=== PATIENT | female | born 1985 | race Caucasian/White ===

== ENCOUNTER 2017-05-10 06:03 | Observation (INO) | payer BC, OTHER ==
[~2017-05-10] VITALS: Ht 172.7 cm; Wt 89.9 kg
[~2017-05-10 06:03] MED LIST: CALC600T9 PO; CLIN300C2 PO; OMEG12006 PO; VITAMIN B12 PO; VITAMIN C PO
[2017-05-10] MEDS ORDERED: SODIUM CHLORIDE 0.9% 1000ML 1,000 ML IV STA (06:22)
[2017-05-10] MEDS ORDERED: KETOROLAC TROMETHAMINE 30 MG/ML VIAL IV STA (06:22)
[2017-05-10] MEDS ORDERED: AMPICILLIN/SULBACTAM SOD INJ 3,000 MG in SODIUM CHLORIDE 0.9% 100ML 100 ML IV ONE (06:30)
[2017-05-10] MEDS ORDERED: OPTIRAY 320 IV PRN (06:30)
[2017-05-10] MEDS ORDERED: DEXAMETHASONE **PF** INJ 10 MG/ML VIAL IV ONE (06:30)
--- NOTE | 2017-05-10 06:33 | EMERGENCY ROOM VISIT NOTE ---
History Report prepared by Gil: Kehinde Nice Under the Supervision of: Dr. Naman Butler M.D. First contact with patient: 06:14 Chief Complaint: DENTAL PAIN Stated Complaint: ABCESSED TOOTH,FACIAL SWELLING History of Present Illness The patient is a 32 year old female who presents to the Emergency Room with complaints of worsening right sided dental pain starting four days ago. She currently rates her discomfort as a 3/10 in severity. The patient states that she was seen at an ER two days ago, and she was diagnosed with a dental abscess , and she was put on clindamycin. She states that the pain has gotten worse, and it is more swollen. The patient denies any fevers, chills, nausea, and vomiting. She states that she does not have any active medical problems. She states that she can swallow, however she feels a fullness. Source of History: patient Onset: four days ago Position: other (right sided dental ) Symptom Intensity: 3/10 Timing: worsening Associated Symptoms: No fevers, No chills, No nausea, No vomiting Note: Associated symptoms: swelling Review of Systems See HPI for pertinent positives and negatives. A total of ten systems were reviewed and were otherwise negative. Past Medical & Surgical Medical Problems: (1) Dental abscess (2) Facial cellulitis Social History Smoking Status: Never Smoker Marital Status: single Occupation Status: student Current/Historical Medications Scheduled Clindamycin Hcl (Cleocin), 300 MG PO Q6 Scheduled PRN Hydrocodone/Acetaminophen 5MG/325MG ([place] 5MG/325MG), 1 TABLET PO Q6 PRN for Pain Allergies Coded Allergies: Sulfa Drugs (Verified Allergy, Unknown, RASH, 05/10/17) Physical Exam Vital Signs Date Time Temp Pulse Resp B/P (MAP) Pulse Ox O2 Delivery O2 Flow Rate FiO2 05/10/17 09:01 132/90 99 Room Air 05/10/17 09:00 84 24 108/81 98 Room Air 05/10/17 08:30 85 19 129/71 98 Room Air 05/10/17 08:00 80 15 108/76 99 Room Air 05/10/17 07:33 62 16 122/62 97 Room Air 05/10/17 06:50 79 05/10/17 06:07 37.0 74 18 128/77 98 Room Air Physical Exam GENERAL: Awake, alert, uncomfortable, in no distress HENT: Moderate right mandibular and sub-mandibular swelling. Mild tenderness. No crepitus. No tongue elevation or trismus. No injection or edema in the posterior oropharynx. Normocephalic, atraumatic. EYES: Normal conjunctiva. Sclera non-icteric. NECK: No pain with tracheal manipulation. No stridor to auscultation. Supple. No nuchal rigidity. FROM. No JVD. RESPIRATORY: Clear to auscultation. CARDIAC: Regular rate, normal rhythm. Extremities warm and well perfused. Pulses equal. ABDOMEN: Soft, non-distended. No tenderness to palpation. No rebound or guarding. No masses. RECTAL: Deferred. MUSCULOSKELETAL: Chest examination reveals no tenderness. The back is symmetrical on inspection without obvious abnormality. There is no CVA tenderness to palpation. No joint edema. LOWER EXTREMITIES: Calves are equal size bilaterally and non-tender. No edema. No discoloration. NEURO: Normal sensorium. No sensory or motor deficits noted. SKIN: No rash or jaundice noted. Medical Decision & Procedures Laboratory Results 05/10/17 06:34 Red Blood Count 4.38, Mean Corpuscular Volume 91.6, Mean Corpuscular Hemoglobin 31.7, Mean Corpuscular Hemoglobin Concent 34.7, Mean Platelet Volume 9.4, Neutrophils (%) (Auto) 64.8, Lymphocytes (%) (Auto) 23.0, Monocytes (%) (Auto) 9.7, Eosinophils (%) (Auto) 2.2, Basophils (%) (Auto) 0.1, Neutrophils # (Auto) 5.55, Lymphocytes # (Auto) 1.97, Monocytes # (Auto) 0.83, Eosinophils # (Auto) 0.19, Basophils # (Auto) 0.01 05/10/17 06:34 Test 05/10/17 06:34 05/10/17 06:42 White Blood Count 8.57 K/uL (4.8-10.8) Red Blood Count 4.38 M/uL (4.2-5.4) Hemoglobin 13.9 g/dL (12.0-16.0) Hematocrit 40.1 % (37-47) Mean Corpuscular Volume 91.6 fL (80-100) Mean Corpuscular Hemoglobin 31.7 pg (25-34) Mean Corpuscular Hemoglobin Concent 34.7 g/dl (32-36) Platelet Count 275 K/uL (130-400) Mean Platelet Volume 9.4 fL (7.4-10.4) Neutrophils (%) (Auto) 64.8 % Lymphocytes (%) (Auto) 23.0 % Monocytes (%) (Auto) 9.7 % Eosinophils (%) (Auto) 2.2 % Basophils (%) (Auto) 0.1 % Neutrophils # (Auto) 5.55 K/uL (1.4-6.5) Lymphocytes # (Auto) 1.97 K/uL (1.2-3.4) Monocytes # (Auto) 0.83 K/uL (0.11-0.59) Eosinophils # (Auto) 0.19 K/uL (0-0.5) Basophils # (Auto) 0.01 K/uL (0-0.2) RDW Standard Deviation 41.9 fL (36.4-46.3) RDW Coefficient of Variation 12.5 % (11.5-14.5) Immature Granulocyte % (Auto) 0.2 % Immature Granulocyte # (Auto) 0.02 K/uL (0.00-0.02) Est Creatinine Clear Calc Drug Dose 119.9 ml/min Estimated GFR () 114.8 Estimated GFR (Non- 99.1 BUN/Creatinine Ratio 14.0 (10-20) Calcium Level 8.6 mg/dl (8.5-10.1) Bedside Hemoglobin 13.9 g/dl (12.0-16.0) Bedside Hematocrit 41 % (37-47) Bedside Sodium 138 mEq/L (135-144) Bedside Potassium 3.9 mEq/L (3.3-5.0) Bedside Chloride 102 mEq/L (101-112) Bedside Total CO2 23 mEq/l (24-31) Anion Gap 17.0 mmol/L (16-25) Bedside Blood Urea Nitrogen 11 mg/dl (7-18) Bedside Creatinine 0.9 mg/dl (0.6-1.3) Bedside Glucose (other) 105 mg/dl (70-99) Bedside Ionized Calcium (Janell) 1.18 mmol/l (1.12-1.32) Laboratory results reviewed by me Medications Administered Medications (Trade) Dose Ordered Sig/Yash Route Start Time Stop Time Status Last Admin Dose Admin Sodium Chloride 1,000 ml @ 999 mls/hr Q1H1M STAT IV 05/10/17 06:22 05/10/17 07:22 DC 05/10/17 06:47 999 MLS/HR Ketorolac Tromethamine (Toradol Inj) 30 mg NOW STAT IV 05/10/17 06:22 05/10/17 06:25 DC 05/10/17 06:49 30 MG Ampicillin Sodium/ Sulbactam Sodium 3000 mg/Sodium Chloride 108 ml @ 200 mls/hr ONE ONCE IV 05/10/17 06:30 05/10/17 07:02 DC 05/10/17 06:49 200 MLS/HR Dexamethasone Sodium Phosphate (Dexamethasone Inj Pf) 10 mg NOW ONCE IV 05/10/17 06:30 05/10/17 06:31 DC 05/10/17 06:47 10 MG Acetaminophen (Tylenol Tab) 650 mg Q4H PRN PO 05/10/17 09:00 06/09/17 08:59 05/10/17 23:30 650 MG ED Course 0614: The patient was evaluated in room B9. A complete history and physical exam was performed. Medical Decision I reviewed the patient's past medical history, medications, and the nursing notes as described above. Differential diagnoses include: Dental abscess, Paul's angina, RE DYE HAND, RTA The patient is a 32-year-old woman presents emergency Department with worsening right jaw swelling and pain after being diagnosed a couple of days ago with a likely periodontal abscess per history of present illness. Arrival the patient is uncomfortable but in no acute distress, afebrile with stable vital signs. He is moderate right mandibular and submandibular swelling with mild tenderness but no crepitus. No trismus or tongue elevation. No posterior pharyngeal edema or injection. No pain with tracheal manipulation. No stridor on auscultation. CT demonstrates extensive overlying cellulitis within the right facial soft tissues extending to SCM concerning for Paul's angina. Patient given Unasyn and dex with some improvement. Will need admission for IV abx and likely oral surgery consultation. Case d/w Dr. Jackson, [facility] hospitalist, who will admit the patient for further management. Impression Primary Impression: Periapical abscess Additional Impression: Ludwigs angina Scribe Attestation The scribe's documentation has been prepared under my direction and personally reviewed by me in its entirety. I confirm that the note above accurately reflects all work, treatment, procedures, and medical decision making performed by me. Departure Information Referrals No Doctor, Assigned (PCP) Patient Instructions Dental Abscess, My [facility] Additional Instructions Please follow up with your primary care physician and dentist in the next 1-3 days for re-evaluation. You likely have .... Otherwise, your exam, CT scan, and lab results did not show signs of an emergent condition at this time. Augmentin as directed. Ibuprofen for pain as needed. Return to the emergency department for worsening symptoms as described in the accompanying instructions. Problem Qualifiers
[2017-05-10] MEDS ORDERED: HYDR-5688 PO (06:44)
[2017-05-10 06:55] LABS: ISTAT CREATININE 0.9 mg/dl (0.6-1.3); ISTAT HEMOGLOBIN 13.9 g/dl (12.0-16.0); ISTAT IONIZED CALCIUM 1.18 mmol/l (1.12-1.32)
[2017-05-10 06:56] LABS: BASO % 0.1 %; BASO ABS # 0.01 K/uL (0-0.2); COMPLETE YES; EOS % 2.2 %; HEMATOCRIT 40.1 % (37-47); IG% 0.2 %; LYMPH ABS # 1.97 K/uL (1.2-3.4); MEAN CELL VOLUME 91.6 fL (80-100); MEAN CORPUSCULAR HEMOGLOBIN 31.7 pg (25-34); MEAN CORPUSCULAR HGB CONC 34.7 g/dl (32-36); MEAN PLATELET VOLUME 9.4 fL (7.4-10.4); MONO % 9.7 %; NEUT % 64.8 %; PLATELET COUNT 275 K/uL (130-400); RED BLOOD COUNT 4.38 M/uL (4.2-5.4); WHITE BLOOD COUNT 8.57 K/uL (4.8-10.8)
[2017-05-10 07:06] LABS: CALCIUM 8.6 mg/dl (8.5-10.1); CREATININE 0.79 mg/dl (0.60-1.20); POTASSIUM 3.9 mmol/L (3.5-5.1)
--- NOTE | 2017-05-10 07:46 | DIAGNOSTIC IMAGING REPORT ---
CT SCAN OF THE NECK WITH IV CONTRAST CLINICAL HISTORY: Periodontal disease. Facial pain and swelling. COMPARISON STUDY: Cervical spine radiographs dated 10/17/2008. TECHNIQUE: Following the IV administration of 115 cc of Optiray 320, CT scan of the soft tissues of the neck was performed from the skull base to the upper chest. Images are reviewed in the axial, sagittal, and coronal planes. IV contrast was administered without complication. A dose lowering technique was utilized adhering to the principles of ALARA. CT DOSE: 506.67 mGy.cm FINDINGS: Soft tissues and dentition: There is a large periapical lucency identified around a right mandibular molar with associated cortical breakthrough. There is significant inflammatory stranding and phlegmonous change in the overlying right premandibular soft tissues consistent with synovitis. No organized fluid collection is clearly seen to indicate abscess. Inflammatory change extends into the right lower neck along the sternocleidomastoid muscle towards the thoracic inlet with trace subcutaneous fluid. Inflammatory change is present within the deep submental soft tissues, and involving the anterior and right parapharyngeal soft tissues. Pharynx: The nasopharynx is normal in appearance. As noted above, there is extensive submental inflammatory change. There is inflammatory stranding within the anterior pharyngeal soft tissues as well as mild infiltration of the right parapharyngeal fat. The pharyngeal airway is widely patent. There is no evidence of mass lesion. The vocal cords are symmetric. The prevertebral/retropharyngeal soft tissues are within normal limits. A calcified tonsilliths is noted on the left. Lymphadenopathy: Prominent right cervical chain lymph nodes are likely on a reactive basis. Thyroid: Normal in size and attenuation. Salivary glands: There is mild hyperemia of the right submandibular gland. The parotid and left submandibular glands are within normal limits. Brain parenchyma: The visualized brain parenchyma at the skull base is normal in appearance. Vascular structures: Internal jugular veins and carotid arteries are widely patent bilaterally. Skeletal structures: Imaged portions of the calvarium at the skull base are within normal limits. The cervical spine appears intact. Sinuses and mastoids: Trace mucosal thickening is seen in the maxillary antra. The remaining visualized paranasal sinuses are clear. The mastoid air cells are well pneumatized. Orbits: The bony orbits are intact. Orbital contents are normal in appearance. Lung apices: Visualized apical lung parenchyma is clear. IMPRESSION: 1. There is a large periapical lucency identified around a right mandibular molar with associated cortical breakthrough. 2. No organized fluid collection is clearly seen to indicate abscess. 3. There is extensive overlying cellulitis within the right facial soft tissues which extends into the right lower neck along the sternocleidomastoid muscle, involves the submental soft tissues, with inflammation involving the anterior pharynx and the right parapharyngeal fat. The appearance is concerning for Lugwig's angina. Clinical correlation will be required. 4. Mildly enlarged cervical lymph nodes are likely on a reactive basis. 5. Mild hyperemia of the right-sided mandibular gland is also likely reactive. Electronically signed by: Robert Borja M.D. 05/10/2017 7:44 AM Dictated Date/Time: 05/10/2017 7:34 AM
[2017-05-10] MEDS ORDERED: ALUMINUM/MAGNESIUM/SIMETH (MAALOX MAX) 30 ML UDC PO PRN (09:00)
[2017-05-10] MEDS ORDERED: MAGNESIUM HYDROXIDE SUSP 30 ML UDC PO PRN (09:00)
[2017-05-10] MEDS ORDERED: POLYETHYLENE (MIRALAX) 17 GM PACK PO PRN (09:00)
[2017-05-10] MEDS ORDERED: ONDANSETRON INJ 2 MG/ML 2 ML VIAL IV PRN (09:00)
[2017-05-10] MEDS ORDERED: KETOROLAC TROMETHAMINE 30 MG/ML VIAL IV PRN (09:00)
[2017-05-10] MEDS ORDERED: MoRPHine SULFATE 4 MG/ML 1 ML CARP\\VIAL IV PRN (09:00)
[2017-05-10 09:07] VITALS: BP 122/62; PULSE 62; TEMP 37; Ht 172.7 cm; Wt 89.9 kg
--- NOTE | 2017-05-10 09:21 | History and Physical ---
History & Physical Date & Time of Service: May 10, 2017 at 09:01 Chief Complaint: Abcessed Tooth,Facial Swelling Primary Care Physician: No Doctor, Assigned History of Present Illness Source: patient, hospital records This is a 32 y/o female with a history of previous dental abscess who presented to the ED on 05/10 with dental pain and facial swelling. The patient states that she first developed right sided dental pain about 4 days ago. The pain initially seemed to get better, but then she developed facial swelling about 2 days ago. She presented to an ER in [place] 2 nights ago and was diagnosed with a dental abscess. No imaging was done at that time. She was prescribed prn [place] and clindamycin and discharged. The patient's swelling got worse despite taking 4-5 clindamycin doses, prompting her to present to this ED. She now complains of swelling in her right cheek going into the neck as well as numbness in the right cheek. She denies difficulty swallowing or breathing. She rates her discomfort a 3/10 aching pain. The patient denies fevers, chills , sweats, chest pain, palpitations, claudication, cough, wheezing, shortness of breath, nausea, vomiting, abdominal pain, dysuria, hematuria, urinary retention , paralysis, weakness. 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 Right cheek/neck swelling and numbness. No hearing loss, No nasal symptoms, No trouble swallowing Respiratory: No cough, No wheezing, No shortness of breath Cardiovascular: No chest pain, No claudication, No palpitations Abdomen: No pain, No nausea, No vomiting Musculoskeletal: No joint pain, No muscle pain, No swelling Genitourinary - Female: No dysuria, No urinary retention, No hematuria Neurologic: No paralysis, No weakness, No numbness/tingling Integumentary: No rash, No itch, No color change Physical Exam Vital Signs Date Time Temp Pulse Resp B/P (MAP) Pulse Ox O2 Delivery O2 Flow Rate FiO2 05/10/17 07:33 62 16 122/62 97 Room Air 05/10/17 06:50 79 05/10/17 06:07 37.0 74 18 128/77 98 Room Air General appearance: +Obese. Well-developed, well-nourished, no apparent distress Head: Normocephalic, atraumatic Eyes: Normal inspection, PERRL, EOMI ENT: +Right lower molar appears decayed. Right mandibular edema, TTP. Submandibular lymph nodes enlarged, TTP. Hearing grossly normal, pharynx normal Neck: Supple, no JVD, trachea midline Respiratory/Chest: Lungs clear to auscultation, normal breath sounds, no respiratory distress Cardiovascular: Regular rate & rhythm, no gallop, no murmur Abdomen/GI: Normal bowel sounds, non-tender, soft Extremities/Musculoskeletal: Normal inspection, no calf tenderness, no pedal edema Neurological/Psych: +Decreased sensation right face compared to left. Alert, normal mood/affect, oriented x 3 Skin: Normal color, warm/dry, no rash Diagnostics Laboratory Results Results Past 24 Hours Test 05/10/17 06:34 05/10/17 06:42 Range/Units White Blood Count 8.57 4.8-10.8 K/uL Red Blood Count 4.38 4.2-5.4 M/uL Hemoglobin 13.9 12.0-16.0 g/dL Hematocrit 40.1 37-47 % Mean Corpuscular Volume 91.6 80-100 fL Mean Corpuscular Hemoglobin 31.7 25-34 pg Mean Corpuscular Hemoglobin Concent 34.7 32-36 g/dl Platelet Count 275 130-400 K/uL Mean Platelet Volume 9.4 7.4-10.4 fL Neutrophils (%) (Auto) 64.8 % Lymphocytes (%) (Auto) 23.0 % Monocytes (%) (Auto) 9.7 % Eosinophils (%) (Auto) 2.2 % Basophils (%) (Auto) 0.1 % Neutrophils # (Auto) 5.55 1.4-6.5 K/uL Lymphocytes # (Auto) 1.97 1.2-3.4 K/uL Monocytes # (Auto) 0.83 0.11-0.59 K/uL Eosinophils # (Auto) 0.19 0-0.5 K/uL Basophils # (Auto) 0.01 0-0.2 K/uL RDW Standard Deviation 41.9 36.4-46.3 fL RDW Coefficient of Variation 12.5 11.5-14.5 % Immature Granulocyte % (Auto) 0.2 % Immature Granulocyte # (Auto) 0.02 0.00-0.02 K/uL Sodium Level 135 136-145 mmol/L Potassium Level 3.9 3.5-5.1 mmol/L Chloride Level 104 98-107 mmol/L Carbon Dioxide Level 27 21-32 mmol/L Anion Gap 4.0 17.0 16-25 mmol/L Blood Urea Nitrogen 11 7-18 mg/dl Creatinine 0.79 0.60-1.20 mg/dl Est Creatinine Clear Calc Drug Dose 119.9 ml/min Estimated GFR () 114.8 Estimated GFR (Non- 99.1 BUN/Creatinine Ratio 14.0 10-20 Random Glucose 105 70-99 mg/dl Calcium Level 8.6 8.5-10.1 mg/dl Bedside Hemoglobin 13.9 12.0-16.0 g/dl Bedside Hematocrit 41 37-47 % Bedside Sodium 138 135-144 mEq/L Bedside Potassium 3.9 3.3-5.0 mEq/L Bedside Chloride 102 101-112 mEq/L Bedside Total CO2 23 24-31 mEq/l Bedside Blood Urea Nitrogen 11 7-18 mg/dl Bedside Creatinine 0.9 0.6-1.3 mg/dl Bedside Glucose (other) 105 70-99 mg/dl Bedside Ionized Calcium (Janell) 1.18 1.12-1.32 mmol/l Diagnostic Radiology Reviewed the following studies and agree with interpretation as follows: [~ rep ct add3]] CT SCAN OF THE NECK WITH IV CONTRAST CLINICAL HISTORY: Periodontal disease. Facial pain and swelling. COMPARISON STUDY: Cervical spine radiographs dated 10/17/2008. TECHNIQUE: Following the IV administration of 115 cc of Optiray 320, CT scan of the soft tissues of the neck was performed from the skull base to the upper chest. Images are reviewed in the axial, sagittal, and coronal planes. IV contrast was administered without complication. A dose lowering technique was utilized adhering to the principles of ALARA. CT DOSE: 506.67 mGy.cm FINDINGS: Soft tissues and dentition: There is a large periapical lucency identified around a right mandibular molar with associated cortical breakthrough. There is significant inflammatory stranding and phlegmonous change in the overlying right premandibular soft tissues consistent with synovitis. No organized fluid collection is clearly seen to indicate abscess. Inflammatory change extends into the right lower neck along the sternocleidomastoid muscle towards the thoracic inlet with trace subcutaneous fluid. Inflammatory change is present within the deep submental soft tissues, and involving the anterior and right parapharyngeal soft tissues. Pharynx: The nasopharynx is normal in appearance. As noted above, there is extensive submental inflammatory change. There is inflammatory stranding within the anterior pharyngeal soft tissues as well as mild infiltration of the right parapharyngeal fat. The pharyngeal airway is widely patent. There is no evidence of mass lesion. The vocal cords are symmetric. The prevertebral/retropharyngeal soft tissues are within normal limits. A calcified tonsilliths is noted on the left. Lymphadenopathy: Prominent right cervical chain lymph nodes are likely on a reactive basis. Thyroid: Normal in size and attenuation. Salivary glands: There is mild hyperemia of the right submandibular gland. The parotid and left submandibular glands are within normal limits. Brain parenchyma: The visualized brain parenchyma at the skull base is normal in appearance. Vascular structures: Internal jugular veins and carotid arteries are widely patent bilaterally. Skeletal structures: Imaged portions of the calvarium at the skull base are within normal limits. The cervical spine appears intact. Sinuses and mastoids: Trace mucosal thickening is seen in the maxillary antra. The remaining visualized paranasal sinuses are clear. The mastoid air cells are well pneumatized. Orbits: The bony orbits are intact. Orbital contents are normal in appearance. Lung apices: Visualized apical lung parenchyma is clear. IMPRESSION: 1. There is a large periapical lucency identified around a right mandibular molar with associated cortical breakthrough. 2. No organized fluid collection is clearly seen to indicate abscess. 3. There is extensive overlying cellulitis within the right facial soft tissues which extends into the right lower neck along the sternocleidomastoid muscle, involves the submental soft tissues, with inflammation involving the anterior pharynx and the right parapharyngeal fat. The appearance is concerning for Lugwig's angina. Clinical correlation will be required. 4. Mildly enlarged cervical lymph nodes are likely on a reactive basis. 5. Mild hyperemia of the right-sided mandibular gland is also likely reactive. Impression Assessment and Plan 32 y/o female with a history of previous dental abscess who presented to the ED on 05/10 with dental pain and facial swelling. Failed oral clindamycin from other ER. Pt arrived to ED AVSS. Soft tissue neck CT shows large periapical lucency around right mandibular molar w/associated cortical breakthrough, as well as extensive overlying cellulitis in right facial soft tissues extending into right lower neck along SCM and submental soft tissues. Inflammation in anterior pharynx w/right parapharyngeal fat concerning for Paul's angina. Pt given Unasyn, Decadron, and Toradol in ED. Dental abscess/fluid collection, facial/neck cellulitis -Admit to med/surg for observation -Consult oromaxillofacial surgery, appreciate recs. Pt will likely require drainage of the fluid around molar -Continue Unasyn 3g IV q6h. Pt tolerated first dose well despite documented sulfa allergy -Toradol 30 mg IV q6h prn pain -Morphine 4 mg IV q4h prn pain DVT prophylaxis -ANGY gonzalez and BENITOs Code Status -Level I, FULL RESUSCITATION STATUS Dispo -If doing better tomorrow, can likely d/c w/Augmentin and follow up with oromaxillofacial surgery PA Physician Supervision Note: I interviewed and examined the patient. Discussed with Franny Aguayo PAC and agree with findings and plan as documented in the note. Any exceptions or clarifications are listed here: None Patient is seen feeling outpatient clindamycin for expanding tenderness to her right face. CT scan with suggestion of cellulitis and possible lucency around when of her right mandibular molars. After Franny had dictated her H&P report above I spoke to Dr. June will review the CT scan and his office. Dr. June feels that if the antibiotics improve the patient's clinical symptoms he can see her in the office later this week and perform likely a dental extraction. I will then cancel the consultation as above as we did have a understanding of her plan of care and Dr. June's services will not be required during the hospital stay unless she decompensates at that time we'll reconsult him Vital signs are stable Oropharynx sure T having fillings in them there is no particular erythema around the gumline her face is markedly swollen with some tenderness below her mandible on the right We'll continue treatment for dental infection and cellulitis although sulfa allergies are listed she was given Unasyn in the ER by the ER staff she is tolerating this well and will continue this antibiotic reevaluation in the morning Documented By: Manuel Ozuna Level of Care Med/Surg Resuscitation Status FULL RESUSCITATION VTE Prophylaxis VTE Risk Assessment Done? Y/N: Yes Risk Level: Low Given or contraindicated: Paz Antunez, SCD's
[2017-05-10 10:00] VITALS: BP 116/82; PULSE 80; TEMP 37.3; O2SAT 98
[2017-05-10] MEDS ORDERED: IV FLUIDS COMPLETED PRN (10:15)
[2017-05-10] MEDS ORDERED: INFLUENZA ADMINISTRATION CHARGE ONE (10:15)
[2017-05-10] MEDS ORDERED: INFLUENZA VIRUS QUAD VACCINE 0.5 ML SYR IM. ONE (10:15)
[2017-05-10 10:29] VITALS: O2SAT 98
[2017-05-10] MEDS: AMPICILLIN/SULBACTAM SOD INJ 3,000 MG in SODIUM CHLORIDE 0.9% 100ML 100 ML IV SCH ×3 (12:58→23:29)
[2017-05-10 16:32] VITALS: BP 116/63; PULSE 82; TEMP 36.7; O2SAT 97
[2017-05-10 23:17] VITALS: BP 113/66; PULSE 82; TEMP 36.9; O2SAT 97
[2017-05-10] MEDS: ACETAMINOPHEN 325 MG TAB PO PRN (23:30)
[2017-05-11] MEDS: AMPICILLIN/SULBACTAM SOD INJ 3,000 MG in SODIUM CHLORIDE 0.9% 100ML 100 ML IV SCH ×2 (05:55→11:52)
[2017-05-11 07:12] LABS: HEMATOCRIT 37.5 % (37-47); MEAN CELL VOLUME 91.5 fL (80-100); MEAN CORPUSCULAR HEMOGLOBIN 31.5 pg (25-34); MEAN CORPUSCULAR HGB CONC 34.4 g/dl (32-36); MEAN PLATELET VOLUME 9.3 fL (7.4-10.4); PLATELET COUNT 263 K/uL (130-400); WHITE BLOOD COUNT 9.12 K/uL (4.8-10.8)
[2017-05-11 07:45] LABS: BUN/CREATININE RATIO 14.1 (10-20); CALCIUM 8.4 mg/dl (8.5-10.1); CREATININE 0.8 mg/dl (0.60-1.20); POTASSIUM 3.7 mmol/L (3.5-5.1)
[2017-05-11 10:48] VITALS: BP 118/72; PULSE 57; TEMP 37; O2SAT 99
[2017-05-11] MEDS ORDERED: AMOX1TAB42 PO ×2 (11:05→11:20)
--- NOTE | 2017-05-11 11:11 | Discharge Instructions ---
Discharge Instructions Date of Service May 11, 2017. Admission Reason for Admission: Facial Cellulitis Discharge Discharge Diagnosis / Problem: Dental infection, facial cellulitis Discharge Goals Goal(s): Decrease discomfort, Improve function, Diagnostic testing, Therapeutic intervention Activity Recommendations Activity Limitations: resume your previous activity . Instructions / Follow-Up Instructions / Follow-Up You were admitted to the hospital after presenting with a dental infection and cellulitis of the face and neck. You were initially treated with an IV antibiotic which did improve your symptoms. You are now medically stable to be discharged home. Medications: *Please take amoxicillin/potassium clavulanate (Augmentin) 875/125 1 tablet by mouth twice a day for 10 days. This is an antibiotic. *You may take over the counter Tylenol as needed for pain. Do not take more than directed. Follow up: *Please follow up with [facility] end[facility]ics tomorrow. You will also be scheduled to follow up with a primary care provider. Please seek medical attention if you experience fevers, chills, sweats, dizziness/lightheadedness, loss of consciousness, worsening dental pain, difficulty swallowing, chest pain, shortness of breath, nausea, vomiting, numbness or tingling, or if you have worsening swelling, pain, or redness in the face and neck. Current Hospital Diet Patient's current hospital diet: Regular Diet Discharge Diet Recommended Diet: Regular Diet Pending Studies Studies pending at discharge: no Medical Emergencies . Who to Call and When: Medical Emergencies: If at any time you feel your situation is an emergency, please call 911 immediately. . Non-Emergent Contact Non-Emergency issues call your: Primary Care Provider, Specialist (dentist or oromaxillofacial surgery) . Past History Medical & Surgical History: (1) Dental abscess (2) Facial cellulitis . "Provider Documentation" section prepared by Franny Aguayo. . VTE Core Measure Inpt VTE Proph given/why not?: Paz Antunez, SCD's
--- NOTE | 2017-05-11 11:20 | Discharge Summary ---
Discharge Summary Date of Service May 11, 2017. (Franny Aguayo PA-C) Discharge Summary Admission Date: May 10, 2017 at 09:01 Discharge Date: May 11, 2017 Discharge Disposition: Home Principal Diagnosis: Dental infection, facial cellulitis Procedures: CT SCAN OF THE NECK WITH IV CONTRAST CLINICAL HISTORY: Periodontal disease. Facial pain and swelling. COMPARISON STUDY: Cervical spine radiographs dated 10/17/2008. TECHNIQUE: Following the IV administration of 115 cc of Optiray 320, CT scan of the soft tissues of the neck was performed from the skull base to the upper chest. Images are reviewed in the axial, sagittal, and coronal planes. IV contrast was administered without complication. A dose lowering technique was utilized adhering to the principles of ALARA. CT DOSE: 506.67 mGy.cm FINDINGS: Soft tissues and dentition: There is a large periapical lucency identified around a right mandibular molar with associated cortical breakthrough. There is significant inflammatory stranding and phlegmonous change in the overlying right premandibular soft tissues consistent with synovitis. No organized fluid collection is clearly seen to indicate abscess. Inflammatory change extends into the right lower neck along the sternocleidomastoid muscle towards the thoracic inlet with trace subcutaneous fluid. Inflammatory change is present within the deep submental soft tissues, and involving the anterior and right parapharyngeal soft tissues. Pharynx: The nasopharynx is normal in appearance. As noted above, there is extensive submental inflammatory change. There is inflammatory stranding within the anterior pharyngeal soft tissues as well as mild infiltration of the right parapharyngeal fat. The pharyngeal airway is widely patent. There is no evidence of mass lesion. The vocal cords are symmetric. The prevertebral/retropharyngeal soft tissues are within normal limits. A calcified tonsilliths is noted on the left. Lymphadenopathy: Prominent right cervical chain lymph nodes are likely on a reactive basis. Thyroid: Normal in size and attenuation. Salivary glands: There is mild hyperemia of the right submandibular gland. The parotid and left submandibular glands are within normal limits. Brain parenchyma: The visualized brain parenchyma at the skull base is normal in appearance. Vascular structures: Internal jugular veins and carotid arteries are widely patent bilaterally. Skeletal structures: Imaged portions of the calvarium at the skull base are within normal limits. The cervical spine appears intact. Sinuses and mastoids: Trace mucosal thickening is seen in the maxillary antra. The remaining visualized paranasal sinuses are clear. The mastoid air cells are well pneumatized. Orbits: The bony orbits are intact. Orbital contents are normal in appearance. Lung apices: Visualized apical lung parenchyma is clear. IMPRESSION: 1. There is a large periapical lucency identified around a right mandibular molar with associated cortical breakthrough. 2. No organized fluid collection is clearly seen to indicate abscess. 3. There is extensive overlying cellulitis within the right facial soft tissues which extends into the right lower neck along the sternocleidomastoid muscle, involves the submental soft tissues, with inflammation involving the anterior pharynx and the right parapharyngeal fat. The appearance is concerning for Lugwig's angina. Clinical correlation will be required. 4. Mildly enlarged cervical lymph nodes are likely on a reactive basis. 5. Mild hyperemia of the right-sided mandibular gland is also likely reactive. (Franny Aguayo ., PA-C) Medication Reconciliation New Medications: Amoxicillin & Pot Clavulanate (Amoxicillin/Clavulanate P) 1 Tab Tab 1 TAB PO BID for 10 Days, #20 TAB Discontinued Medications: Clindamycin Hcl (Cleocin) 300 Mg Cap 300 MG PO Q6 for 10 Days, #40 CAP Hydrocodone/Acetaminophen 5MG/325MG ([place] 5MG/325MG) Tab 1 TABLET PO Q6 PRN for Pain Discharge Exam Patient reports feeling much better. She states that her pain and swelling is much improved after receiving IV antibiotics. Her ability to swallow and open/ close her mouth is also improved. She does still have some decreased sensation in the right cheek, but the affected area has decreased. The patient denies fevers, chills, sweats, chest pain, palpitations, claudication, cough, wheezing , shortness of breath, nausea, vomiting, abdominal pain, dysuria, hematuria, urinary retention, paralysis, weakness. Constitutional: No fever, No chills, No sweats Eyes: No worsening of vision, No eye pain, No diplopia ENT: +Dental pain. Swelling right cheek/neck improved. No hearing loss, No nasal symptoms, No trouble swallowing Respiratory: No cough, No wheezing, No shortness of breath Cardiovascular: No chest pain, No claudication, No palpitations Abdomen: No pain, No nausea, No vomiting Musculoskeletal: No joint pain, No muscle pain, No swelling Genitourinary - Female: No dysuria, No urinary retention, No hematuria Neurologic: +Numbness right cheek, now only directly over affected tooth. No paralysis, No weakness Integumentary: No rash, No itch, No color change General appearance: +Obese. Well-developed, well-nourished, no apparent distress Head: Normocephalic, atraumatic Eyes: Normal inspection, PERRL, EOMI ENT: +Right lower molar appears decayed. Right mandibular edema improved, mildly TTP. Submandibular lymph nodes enlarged, TTP. Hearing grossly normal, pharynx normal Neck: Supple, no JVD, trachea midline Respiratory/Chest: Lungs clear to auscultation, normal breath sounds, no respiratory distress Cardiovascular: Regular rate & rhythm, no gallop, no murmur Abdomen/GI: Normal bowel sounds, non-tender, soft Extremities/Musculoskeletal: Normal inspection, no calf tenderness, no pedal edema Neurological/Psych: +Decreased sensation right face compared to left. Alert, normal mood/affect, oriented x 3 Skin: Normal color, warm/dry, no rash (Franny Aguayo ., PA-C) Hospital Course 32 y/o female with a history of previous dental abscess who presented to the ED on 05/10 with dental pain and facial swelling. Failed oral clindamycin from other ER. Pt arrived to ED AVSS. Soft tissue neck CT shows large periapical lucency around right mandibular molar w/associated cortical breakthrough, as well as extensive overlying cellulitis in right facial soft tissues extending into right lower neck along SCM and submental soft tissues. Inflammation in anterior pharynx w/right parapharyngeal fat concerning for Paul's angina. Pt given Unasyn, Decadron, and Toradol in ED. Dental infection/?abscess, facial/neck cellulitis--improving -Admit to med/surg for observation -Dr. June reviewed and can extract tooth later in the week. No need for hospital consultation -Continue Unasyn 3g IV q6h. Pt tolerated well despite documented rash with sulfa drugs. D/C with Augmentin 875 mg PO BID x 10 days -Toradol 30 mg IV q6h prn pain -Morphine 4 mg IV q4h prn pain -Tylenol prn pain DVT prophylaxis -ANGY gonzalez and SCDs Code Status -Level I, FULL RESUSCITATION STATUS Dispo -Improved, can d/c home with Augmentin -Pt scheduled appt on 05/12 with [facility]. If they are not able to handle infection, she will call Dr. June -Will establish her with a PCP Total Time Spent: Greater than 30 minutes This includes examination of the patient, discharge planning, medication reconciliation, and communication with other providers. (Franny Aguayo ., BELINDA) PA Physician Supervision Note: I interviewed and examined the patient. Discussed with Franny Aguayo PAC and agree with findings and plan as documented in the note. Any exceptions or clarifications are listed here: None Patient states she feels much better. She still has slight facial swelling. She has no dental pain. She self made her own endodontic appointment. The patient's vitals stable overnight her face has slight swelling minor tenderness but no fluctuance over the right cheek she has no stridor or respiratory distress Facial cellulitis associated with likely right mandibular molar periodontal infection patient be discharged on pain medicine and Augmentin with follow-up with her dentist in 1 day Documented By: Manuel Ozuna (Manuel Ozuna M.D.) Discharge Instructions Please refer to the electronic Patient Visit Report (Discharge Instructions) for additional information. (Franny Aguayo ., DARRYL-C) Additional Copies To Yady Paige M.D.
[2017-05-11 11:50] VITALS: BP 118/72; PULSE 57; TEMP 37; O2SAT 99
[2017-05-11] MEDS: ACETAMINOPHEN 325 MG TAB PO PRN (11:52)
== END 2017-05-11 13:02 | disposition home or self-care (01) ==
LOC: C.EDB 06:04 → C.MSN 09:01 → ENRESERV 09:21 → UNDODEPER 10:45
PROVIDERS: ADMIT Internal Medicine; ATTEND Internal Medicine
DX: K04.7 Periapical abscess without sinus (principal); K12.2 Cellulitis and abscess of mouth